=== PATIENT | male | born 1980 | race Two or more races ===

== ENCOUNTER 2021-03-02 00:13 | Emergency (ER) | payer OTHER ==
[~2021-03-02] VITALS: Ht 175.3 cm; Wt 89.4 kg
[2021-03-02 00:52] VITALS: BP 131/91
== END 2021-03-02 02:26 ==
LOC: ER 00:15
DX: F41.9 Anxiety disorder, unspecified (principal)

== ENCOUNTER 2021-03-02 11:06 | Emergency (ER) | payer OTHER ==
[~2021-03-02] VITALS: Ht 182.9 cm; Wt 99.8 kg
[2021-03-02] MEDS ORDERED: LORazepam 2MG/ML-1ML VIAL ONE (12:04)
[2021-03-02] MEDS ORDERED: HALOPERIDOL LACTATE 5 MG/ML INJ VIAL ONE (12:04)
[2021-03-02] MEDS ORDERED: diphenhdrAMINE HCL 50 MG/1 ML VL ONE (12:05)
[2021-03-02 12:15] LABS: Amphetamine Screen, Urine NEGATIVE (NEGATIVE); Barbiturate Scree,Urine NEGATIVE (NEGATIVE); Benzodiazephine Screen, Urine NEGATIVE (NEGATIVE); Cannabinoid Screen, Urine NEGATIVE (NEGATIVE); Cocaine Screen, Urine NEGATIVE (NEGATIVE); Opiate Scree,Urine NEGATIVE (NEGATIVE); Phencyclidine Screen, Urine NEGATIVE (NEGATIVE)
[2021-03-02] MEDS ORDERED: diphenhdrAMINE HCL 50 MG/1 ML VL IM ONE (12:15)
[2021-03-02] MEDS ORDERED: LORazepam 2MG/ML-1ML VIAL IV ONE (12:15)
[2021-03-02] MEDS ORDERED: HALOPERIDOL LACTATE 5 MG/ML INJ VIAL IM ONE (12:15)
[2021-03-02 15:42] VITALS: BP 149/80
== END 2021-03-02 15:44 | disposition home or self-care (01) ==
LOC: EDBD 11:06 → ER 11:06
DX: F41.9 Anxiety disorder, unspecified (principal); R51.9 Headache, unspecified
CPT/HCPCS: 70450; 80307; 96372; 96374; 99285; J1200; J1630; J2060